=== PATIENT | female | born 1990 ===

== ENCOUNTER 2019-07-28 13:00 | Inpatient (IN) | payer OTHER ==
[~2019-07-28] VITALS: Ht 157.5 cm; Wt 3.6 kg
[2019-08-05] MEDS ORDERED: PRENATAL TABLE1 EAC1 PO (10:44)
== END 2019-08-08 14:01 | DRG 788 ==
LOC: ADM 13:00 → EDSTATUS 13:00 → OB/GYN 08-05 06:04 → LDR 08-05 06:04 → EDSEX 08-05 06:04 → LDR 08-05 06:42 → O/R 08-05 14:32 → OB/GYN 08-05 15:05 → O/R 08-11 13:00
PROVIDERS: ADMIT Obstetrics & Gynecology
PROC: 4A1HXCZ Monitoring of Products of Conception, Cardiac Rate, External Approach (ICD-10-PCS; 2019-08-05)
PROC: 4A033R1 Measurement of Arterial Saturation, Peripheral, Percutaneous Approach (ICD-10-PCS; 2019-08-05)
PROC: 10D00Z1 Extraction of Products of Conception, Low, Open Approach (ICD-10-PCS; principal; 2019-08-05 12:00)
PROC: 0UB20ZZ Excision of Bilateral Ovaries, Open Approach (ICD-10-PCS; 2019-08-05 12:00)
DX: O33.5XX0 Maternal care for disproportion due to unusually large fetus, not applicable or unspecified (principal); O34.83 Maternal care for other abnormalities of pelvic organs, third trimester; N83.292 Other ovarian cyst, left side; N83.291 Other ovarian cyst, right side; Z3A.39 39 weeks gestation of pregnancy; Z37.0 Single live birth